=== PATIENT | male | born 1985 | race Caucasian/White ===

== ENCOUNTER 2018-03-22 16:32 | Emergency (ER) | payer SELFPAY ==
[2018-03-22] MEDS: CYCLOBENZAPRINE 10 MG TAB PO (19:10)
[2018-03-22] MEDS: KETOROLAC TROMETHAMINE 10 MG TAB PO (19:11)
== END 2018-03-22 20:02 | disposition home or self-care (01) ==
LOC: M ED 16:32
DX: S46.811A Strain of other muscles, fascia and tendons at shoulder and upper arm level, right arm, initial encounter (principal); S46.812A Strain of other muscles, fascia and tendons at shoulder and upper arm level, left arm, initial encounter; V49.40XA Driver injured in collision with unspecified motor vehicles in traffic accident, initial encounter; Y92.410 Unspecified street and highway as the place of occurrence of the external cause
CPT/HCPCS: 99283

== ENCOUNTER → 2018-07-19 | Outpatient (REF) | payer BC ==
[2018-07-19 11:20] LABS: IMMOTILITY 81 %; NON PROGRESSIVE MOTILITY (c) 18 %; PROGRESSIVE MOTILITY (a) 1 % (>=32); SEMEN APPEARANCE OPAQUE (OPAQUE); SEMEN VISCOSITY LIQUID (LIQUID); SEMEN VOLUME 2.6 ml (4.0-5.0); SEMEN pH 8.5 (7.0-8.0); SPERM CONCENTRATION 8.2 M/ml (>=15.0); TOTAL MOTILITY 19 % (>=40); WBC CONCENTRATION <=1 M/ml (<=1 M/ml)
[2018-07-19 11:21] LABS: % NORMAL FORMS < 4 % (>=4); SPERM# 21.3 M/Ejac (>=39); TOTAL FUNCTIONAL 0 M/Ejac.; TOTAL PROGRESSIVE SPERM 0.3 M/Ejac.
== END ==
LOC: M LAB REF 10:44
DX: N46.9 Male infertility, unspecified (principal)